=== PATIENT | female | born 1960 | race Caucasian/White ===

== ENCOUNTER → 2017-08-17 20:30 | Outpatient (CLI) | payer OTHER, SELFPAY | LOC: SL 20:30 | PROVIDERS: Family Provider Family Medicine; PCP Family Medicine; Visit Provider Family Medicine | DX: G47.33 Obstructive sleep apnea (adult) (pediatric) (principal) | CPT/HCPCS: 95811 ==

== ENCOUNTER → 2018-06-08 07:05 | Outpatient (CLI) | payer BC, SELFPAY ==
--- NOTE | 2018-06-08 07:12 | BI_ITS ---
MAMMOGRAPHY - BILATERAL SCREENING REASON FOR EXAM: Female, 57 years old. Routine annual screening examination. PERTINENT HISTORY: Non-contributory. History of bilateral excisional breast biopsies. TECHNIQUE: Digital bilateral breast queenie (3D mammographic acquisition) in the CC and MLO projections. 2-D mediolateral oblique (MLO) and craniocaudad (CC) views of both breasts were obtained. CAD: Full Field Digital Mammography with Computer Added Detection was performed. COMPARISON: Comparison is made with prior study dated May 17, 2017 and September 04, 2014. FINDINGS: Breast Composition: There are scattered areas of fibroglandular density. There are no dominant masses or suspicious calcifications. Stable small bilateral benign appearing axillary lymph nodes. No other significant abnormalities are identified. There has been no significant change since the prior study. BI/SCREENING MAMM (CAD), BILAT IMPRESSION: Stable bilateral screening mammogram. Yearly follow-up mammogram recommended. (A) ASSESSMENT CATEGORY: BIRADS Category 2: Benign. A letter regarding these results will be sent to the patient by the facility within 30 days. Approximately 10% of breast cancers are not detected by mammography. A normal mammogram should not delay biopsy of a clinically suspicious abnormality. [id number] Electronically Signed: Alvarado Razo MD at 8:54 EST , Service support ,
== END ==
PROVIDERS: Visit Provider Nurse Practitioner Family
DX: Z12.31 Encounter for screening mammogram for malignant neoplasm of breast (principal)
CPT/HCPCS: 77063; 77067

== ENCOUNTER 2021-02-17 15:58 | Emergency (ER) | payer MEDICARE, SELFPAY ==
[2021-02-17 15:58] VITALS: BP 121/74; PULSE 83; RESP 21; TEMP 36.3; O2SAT 96; BMI 31.9
--- NOTE | 2021-02-17 16:20 | RAD_ITS ---
STUDY: X-RAY CHEST REASON FOR EXAM: Female, 60 years old. Sore throat, cough, shortness of breath TECHNIQUE: AP COMPARISON: None. FINDINGS: Prominent interstitial lung markings with patchy areas of groundglass opacity in the lung bases. No dense airspace consolidation. There is no demonstrated pleural abnormality. Normal size heart. Normal mediastinum and manjit. Normal visualized pulmonary arteries. Normal visualized aortic arch and descending thoracic aorta. Normal visualized thoracic spine. Normal visualized ribs, clavicles, and shoulders. There is no demonstrated abnormality of the visualized soft tissue structures of the upper abdomen. RAD/Chest 1 View (Portable) IMPRESSION: Patchy interstitial and groundglass opacities suggesting infection/pneumonia, including viral causes. Electronically Signed: Sinan Trent MD ([place]) at 16:38 EDT , Service support ,
--- NOTE | 2021-02-17 17:19 | EDS_ITS ---
HPI History of Present Illness Chief Complaint: Shortness of Breath Detail of Chief Complaint: Covid positive. Informant: patient Onset/Context/Timing Onset: Days Context: gradual Timing: Continuous Current Severity: Mild Maximum Severity: Mild Worsened by: Exertion Relieved by: Nothing Associated Symptoms cough Chest Pain: Positive for None Narrative Narrative: Old female who starting symptoms on Monday and had a positive Covid test yesterday. So she is now had it for 3 days. She denies nausea or vomiting. She has had a fever as high as 100.7. Complaining of mild shortness of breath. Cough either nonproductive or at times yellowish sputum. No hemoptysis. No chest pain. Patient is unvaccinated. PE Risk Factors: Negative for Cancer, OCP + Smoking + > 35, Prior DVT or PE, Recent immobilization, Recent surgery and Recent travel Prior similar symptoms: No Recent Illness/Hospitalization: No PFSH PFSH Medical History Back pain Fatigue Migraines SOB (shortness of breath) Home Medications dexamethasone [Decadron] 6 mg PO DAILY #7 tab 02/17/21 [Rx Last Taken Unknown] Allergy/AdvReac Type Severity Reaction Status Date / Time acetaminophen [From Vicodin] Allergy Nausea Verified 02/17/21 15:58 hydrocodone [From Vicodin] Allergy Nausea Verified 02/17/21 15:58 Iodinated Contrast Media AdvReac MAKES ME Verified 02/17/21 15:58 [CONTRASTS] JITTERY Social History Smoking Status: Current every day smoker tobacco type: cigarettes alcohol intake: never ROS ROS ED ROS Narrative Cough, shortness of breath and fever. Myalgias. Review of Systems ROS Unobtainable: Denies due to encephalopathy Constitutional Constitutional ED: Reports fever(s); Denies chills or sweats Eyes Eyes: Denies change in vision ENT ENT ED: Denies ear pain or sore throat Cardiovascular Cardiovascular: Denies chest pain or palpitations Respiratory/Chest Respiratory/Chest: Reports cough and dyspnea Gastrointestinal Gastrointestinal: Denies abdominal pain, diarrhea, nausea or vomiting Genitourinary Genitourinary ED: Denies dysuria Musculoskeletal Musculoskeletal: Reports myalgias Integumentary Denies rash Neurologic Neurologic: Denies headache(s) Psychiatric Psychiatric: Denies depression Endocrine Endocrinology: Denies polyuria or other Hematologic/Lymphatic Hematologic/Lymphatic: Denies easy bruising Allergic/Immunologic Allergic/Immunologic ED: Denies urticaria EXAM Physical Exam Narrative Exam Narrative: 40-year-old no acute distress vital signs stable afebrile. Pulse ox 96% on room air. No respiratory distress. HEENT exam unremarkable. Moist mucous memories. Neck nontender no lymphadenopathy. Lungs clear to auscultation bilaterally. Heart regular rhythm rate about 80 no murmur. Chest were nontender. Abdomen soft nontender. Moving all 4 extremities. Calves are nontender without edema or cords. Const Vital Signs: 02/17/21 15:58 02/17/21 16:39 Temperature 97.3 F L Temperature Source Temporal Pulse Rate 83 Respiratory Rate 21 H Respiratory Effort Normal Non-Labored Respiratory Depth Normal Respiratory Pattern Normal Blood Pressure 121/74 H Blood Pressure Mean 89 Pulse Ox 96 Oxygen Delivery Method Room Air Room Air Positive well nourished, well developed and obese; Negative for cachectic, contractures or unkempt General Appearance ED: well developed and NAD; Negative for unkempt, cachectic, contractures or pallor Nutritional Appearance: obese; Negative for cachectic HEENT Reports moist mucous membranes atraumatic; Negative for trauma or tenderness Eyes PERRL and EOMs intact bilaterally Neck no lymphadenopathy, supple, no meningeal signs and no JVD General: Negative for tenderness Resp normal respiratory effort and clear to auscultation bilaterally Auscultation: Negative for rales, rhonchi or wheezes Cardio regular rate, regular rhythm, S1 normal heart sound, S2 normal heart sound and no murmurs GI non-tender, non-distended and no masses Auscultation: normoactive bowel sounds Palpation: soft; Negative for tender or guarding Back/Spine no CVA tenderness and normal to inspection Extremity normal to inspection General Extremety ED: Negative for edema or tenderness General Extremity: Negative for edema Neuro oriented x3 Sensorium / Orientation: alert, oriented to person, oriented to place and oriented to time; Negative for orientation impaired, confused, lethargic or stuporous Motor Exam: strength 5/5 throughout Psych mental status grossly normal Appearance: Negative for unkempt Skin no wounds and No skin turgor normal General Skin Exam: Negative for jaundice or pallor Lesions: no lesions Rashes: no rashes MDM MDM MDM Narrative Medical decision making narrative: 60-year-old Covid positive. Chest x-ray shows groundglass appearance. Patient's pulse ox is 96 she can be discharged home. Started on Decadron. Referred to monoclonal antibody therapy. Radiography Chest X-Ray - ED: 1 View, Read by ED Physician, Read by Radiologist, Heart, Mediastinum, Bony Structures, No Acute Disease, Right Infiltrate and Left Infiltrate Diagnostic Testing: Clinical Impression(s) from Imaging Studies Chest X-Ray 02/17/21 16:20 IMPRESSION: Patchy interstitial and groundglass opacities suggesting infection/pneumonia, including viral causes. Electronically Signed: Sinan Trent MD ([place]) at 16:38 EDT , Service support , Chest x-ray consistent with groundglass appearance opacities in the bases secondary to Covid. Portable 1 view interpreted by myself and the radiologist. Discharge Plan Triage Chief Complaint: Shortness of Breath ED Provider: Jigar Quigley Dx/Rx/DC Orders Clinical Impression: COVID-19 Instructions: Human Coronaviruses Prescriptions: New dexamethasone [Decadron] 6 mg tablet 6 mg PO DAILY Qty: 7 RF: 0 Other Ambulatory Orders: COVID Outpatient Monoclonal Antibody Referral (Routine) Timeframe: 1 Day Facility: [facility] - Location: [facility] Ordered By: Dr. Jigar Quigley Primary Care Provider: Navneet Vargas NP Referrals: Navneet Vargas [facility], [facility] [Primary Care Provider] - 1 Week if not improving Activity Restrictions/Additional Instructions: Plenty of fluids and rest. Quarantine for 10 days from the onset of your symptoms which was Monday. I referred you to the [facility] monoclonal antibody therapy center. They should call you tomorrow to have this set up. They do not call you by noon call the ER we will contact you to the monoclonal antibody therapy center. The [facility] monoclonal antibody therapy center. Decadron daily start tomorrow. We gave you a dose today. Rhythm Return if feeling a lot worse primarily a lot more short of breath. Disposition Disposition: Home, Self Care
--- NOTE | 2021-02-17 17:30 | ED.RN ---
PT LEFT PRIOR TO RECIEVING D/C INSTRUCTIONS DR. SIMMONS AWARE.
== END 2021-02-17 17:32 | disposition home or self-care (01) ==
PROVIDERS: Emergency Provider Emergency Medicine; PCP Nurse Practitioner Family
DX: U07.1 COVID-19 (principal); F17.210 Nicotine dependence, cigarettes, uncomplicated; E66.9 Obesity, unspecified
CPT/HCPCS: 71045; 99282